=== PATIENT | male | born 1980 | race Caucasian/White ===

== ENCOUNTER 2021-09-30 10:25 | Emergency (ER) | payer OTHER ==
[~2021-09-30] VITALS: Ht 175.3 cm; Wt 90.7 kg
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
--- NOTE | 2021-09-30 11:16 | NUR ---
PT LAYING IN BED, AWAKE AND ALERT, VS STABLE, WILL CONTINUE TO MONITOR
[2021-09-30] MEDS ORDERED: KETOROLAC TROMETHAMINE INJ 30 MG/ML VIAL IM ONE (11:30)
[2021-09-30] MEDS ORDERED: KETOROLAC TROMETHAMINE INJ 30 MG/ML VIAL ONE (11:54)
--- NOTE | 2021-09-30 12:00 | NUR ---
ULTRASOUND BEING DONE AT BEDSIDE
[2021-09-30] MEDS ORDERED: SULF1TAB48 PO (13:12)
[2021-09-30] MEDS ORDERED: IBUP-1953 PO (13:12)
[2021-09-30] MEDS ORDERED: CEFTRIAXONE 500 MG VIAL ONE ×2 (13:19→13:28)
[2021-09-30] MEDS ORDERED: CEFTRIAXONE 500 MG VIAL IM ONE (13:30)
--- NOTE | 2021-09-30 13:41 | NUR ---
Patient discharged to home in stable condition. Written and verbal after care instructions given. Patient verbalizes understanding of instruction.
[2021-09-30 13:44] VITALS: BP 105/79
== END 2021-09-30 13:45 ==
LOC: ER 10:32
DX: N45.3 Epididymo-orchitis (principal)
CPT/HCPCS: 76870; 96372 ×2; 99291; J0696; J1885